=== PATIENT | female | born 2000 | race Caucasian/White ===

== ENCOUNTER 2019-05-01 18:39 | Emergency (ER) | payer OTHER ==
[~2019-05-01] VITALS: Ht 157.5 cm; Wt 65.8 kg
[2019-05-01 19:05] VITALS: BP 118/81
--- NOTE | 2019-05-01 19:12 | NUR ---
PT PROVIDED URINE SAMPLE. PT SENT TO [facility] WITH [facility].
--- NOTE | 2019-05-01 20:39 | NUR ---
PT CALLED FROM [facility], NO ANSWER, PT LWBS
--- NOTE | 2019-05-01 20:56 | NUR ---
PATIENT LEFT WITHOUT BEING SEEN BY DR. NUNEZ. NO FURTHER CARE PROVIDED FOR PATIENT.
--- NOTE | 2019-05-01 20:56 | NUR ---
PT CALLED FROM [facility], NO ANSWER, LWBS
== END 2019-05-01 20:39 | disposition left against medical advice (07) ==
LOC: MED 18:39
DX: R51 Headache (principal); Z53.21 Procedure and treatment not carried out due to patient leaving prior to being seen by health care provider